=== PATIENT | male | born 1950 | race Caucasian/White ===

== ENCOUNTER → 2020-05-16 | Outpatient (CLI) | payer BC ==
--- NOTE | 2020-05-16 17:03 | XR ---
EXAMINATION TYPE: XR Hip Complete LT DATE OF EXAM: 05/16/2020 COMPARISON: NONE HISTORY: 69-year-old male with left hip pain TECHNIQUE: 2 views FINDINGS: There is moderate axial joint space narrowing at the left hip with marginal spurring. Pelvic phleboli th. No acute fracture, subluxation, or dislocation. IMPRESSION: Moderate left hip OA. No acute osseous abnormality seen.
== END | disposition home or self-care (01) ==
LOC: RADXRYALE 11:22
PROVIDERS: ATTEND Physician Assistant Medical
DX: M16.12 Unilateral primary osteoarthritis, left hip (principal)
CPT/HCPCS: 73502

== ENCOUNTER → 2020-07-25 | Outpatient (CLI) | payer MEDICARE ==
[2020-07-25 14:44] LABS: HCT 43.5 % (39.0-53.0); HGB 15.6 gm/dL (13.0-17.5); MCH 32.6 pg (25.0-35.0); MCHC 35.8 g/dL (31.0-37.0); MCV 90.8 fL (80.0-100.0); Mean Platelet Volume 7.7; Platelet Count 163 k/uL (150-450); RBC 4.79 m/uL (4.30-5.90); RDW 13.1 % (11.5-15.5); WBC 8.2 k/uL (3.8-10.6)
[2020-07-25 14:52] LABS: Appearance,Urine Clear (Clear); Bilirubin,Urine Negative (Negative); Blood,Urine Negative (Negative); Color,Urine Yellow; Glucose,Urine (UA) Negative (Negative); Ketones,Urine Negative (Negative); Leukocyte Esterase,Urine Negative (Negative); Nitrite,Urine Negative (Negative); Protein,Urine Negative (Negative); Specific Gravity,Urine 1.018 (1.001-1.035); Urobilinogen,Urine <2.0 mg/dL (<2.0)
[2020-07-25 14:54] LABS: Partial Thromboplastin Time 23.6 sec (22.0-30.0); Prothrombin Time 10.3 sec (9.0-12.0)
[2020-07-25 15:02] LABS: Albumin 4.1 g/dL (3.5-5.0); Calcium 9.3 mg/dL (8.4-10.2); Potassium 4.1 mmol/L (3.5-5.1); Total Bilirubin 0.9 mg/dL (0.2-1.3); Total Protein 6.8 g/dL (6.3-8.2)
== END | disposition home or self-care (01) ==
LOC: LABPAT 13:50
PROVIDERS: ATTEND Orthopaedic Surgery
DX: Z01.818 Encounter for other preprocedural examination (principal); M16.12 Unilateral primary osteoarthritis, left hip; Z01.812 Encounter for preprocedural laboratory examination
CPT/HCPCS: 36415; 80053; 81003; 85027; 85610; 85730; 87070; 93005

== ENCOUNTER 2020-08-02 10:27 | Day surgery (SDC) | payer BC, MEDICARE ==
[2020-07-26 15:46] VITALS: BMI 36.8
[~2020-08-02 10:27] MED LIST: ACETAMINOPHEN TAB 500 MG TAB PO PRN; GABAPENTIN 300 MG CAP PO PRN; HYDROcodone/APAP 5-325MG 1 EACH TAB PO PRN; HYDROmorphone 0.2 MG/1 ML SYRINGE IVP PRN; HYDROmorphone 0.5 MG/0.5 ML SYRINGE IVP PRN; MAGNESIUM HYDROXIDE 2,400 MG/10 ML CUP PO PRN; MELOXICAM 7.5 MG TAB PO PRN; NALOXONE 0.4 MG/ML 1 ML VIAL IV PRN; ONDANSETRON 4 MG/2 ML VIAL IVP PRN; ROPIVACAINE/EPI/CLONIDINE/KET 50 ML SYRINGE MISCELLANE PRN; TRANEXAMIC ACID 1,000 MG in SODIUM CHLORIDE 0.9% 100 ML IVPB PRN
[2020-08-02] MEDS ORDERED: MIDAZOLAM 2 MG/2 ML VIAL IV ONE (10:59)
[2020-08-02] MEDS ORDERED: PROPOFOL 10 MG/ML 20 ML VIAL IV ONE (11:10)
[2020-08-02] MEDS ORDERED: SODIUM CHLORIDE 0.9% 100 ML BAG ONE (11:10)
[2020-08-02] MEDS ORDERED: HEPARIN SODIUM,PORCINE 10,000 UNIT/ML 1 ML VIAL ONE (11:10)
[2020-08-02] MEDS ORDERED: SODIUM CHLORIDE 0.9% IRRIG 1,000 ML BTL IRRIGATION ONE (11:10)
[2020-08-02] MEDS ORDERED: LIDOCAINE 1% INJ 10MG/ML (20 ML MDV) ONE (11:10)
[2020-08-02] MEDS ORDERED: TRANEXAMIC ACID 1,000 MG/10 ML VIAL ONE (11:10)
[2020-08-02] MEDS ORDERED: ePHEDrine SULFATE/0.9% NACL/PF 50 MG/5 ML SYRINGE IV ONE (11:10)
[2020-08-02] MEDS ORDERED: MIDAZOLAM 2 MG/2 ML VIAL ONE (11:10)
[2020-08-02] MEDS ORDERED: fentaNYL (PF) 50 MCG/ML 2 ML AMP ONE (11:10)
[2020-08-02] MEDS ORDERED: IV FLUID CONTINUATION 900 ML IV ONE (11:15)
[2020-08-02] MEDS ORDERED: ceFAZolin 3,000 MG in SODIUM CHLORIDE 0.9% IRRIGATIO 3,000 ML IRRIGATION ONE (11:19)
--- NOTE | 2020-08-02 12:43 | P.OP ---
Date of Procedure: 08/02/20 Preoperative Diagnosis: Severe osteoarthritis left hip Postoperative Diagnosis: Severe osteoarthritis left hip Procedure(s) Performed: Left total hip arthroplasty with a direct anterior approach Implants: [employer]hew Polarstem standard size 6 [employer]hew R3, 3 hole hemispherical acetabular shell, 58 mm Hunt [employer] Nephew Reflection 6.5 mm cancellus screw, 20 mm, 25 mm Hunt [employer] Nephew R3, XLPE 20 acetabular liner Hunt [employer] Nephew Oxinium femoral head 36 m, +0 All components were press-fit. The articulation is Oxinium on polyethylene. Anesthesia: spinal Surgeon: Velasquez Clifton Stretch Box Tender #1: Ave Zhang Estimated Blood Loss (ml): 200 (60 mL returned with Cell Saver) Pathology: other (Femoral head) Condition: stable Disposition: PACU Indications for Procedure: After failure of conservative treatment we discussed the surgical and nonsurgical treatment options at length. Patient wishes to proceed with a total hip arthroplasty with a direct anterior approach. Complications specific to this procedure were discussed at length, including but not limited to infection, leg length discrepancy, dislocation, nerve injury, and fracture. Covid-19 was also discussed at length with the patient, and they are aware of the current policies and procedures. The patient was given the option of delaying surgery, but they elect to proceed knowing these risks. Patient is aware of all these complications and informed consent was obtained Operative Findings: Operative findings are consistent with severe osteoarthritis of left hip Description of Procedure: Patient was seen and evaluated in the preoperative area and the consent was reviewed. The operative site was marked with a skin marker. The patient was then brought to the operating room and given preoperative antibiotics intravenously. 1 g of Tranexamic acid was also given intravenously. A spinal anesthetic was administered by the anesthesia department. The patient was then placed on the Wilton table with the bony prominences well-padded. The hip area was then prepped with a ChloraPrep solution and draped in the usual sterile fashion. A universal timeout was then performed, which confirmed the patient's name, surgical site, ALLERGIES, and procedure being performed on the consent. Next the incision site was located at 1 cm distal and 1 cm lateral to the anterior superior iliac spine. The skin and subcutaneous tissues were sharply incised. Incision was carefully dissected down to the fascia overlying the tensor fascia oneil muscle. This fascia was then incised in line with the incision. Care was taken to stay laterally in order to avoid injuring the lateral femoral cutaneous nerve. Next, using blunt finger dissection, the tensor fascia oneil muscle was dissected off its investing fascia. The muscle was then carefully retracted laterally with a cobra retractor over the lateral neck of the femur. Next, the circumflex vessels were identified and cauterized using the AquaMantis device. The anterior hip capsule was then exposed. The capsule was then opened and an inverted T fashion. Cobra retractors were then placed intracapsularly. The retractors were maintained intracapsular throughout the procedure. The proximal femur was then visualized. A small amount of traction was placed on the leg. The femoral neck was then osteotomized appropriate level above the lesser trochanter. A small wedge of bone was then removed from the remaining femoral head. Next, using a corkscrew the femoral head was removed from the acetabulum. On gross visual inspection, the femoral head had complete loss of articular cartilage and multiple periarticular osteophytes. The femoral head was then measured. Attention was then turned to the acetabulum. The acetabulum was exposed and any remaining labrum was excised. Sequential reaming of the acetabulum was performed using fluoroscopic guidance until there was a good bed of bleeding cancellus bone. When the appropriate size was reached, a trial was then placed. The position and fit of the trial was checked with fluoroscopy. The trial was then removed. Then, using fluoroscopic guidance, the final implant was impacted at 20 of anteversion and 40 of abduction, and fully seated in the acetabulum. 2 screws were then placed in the acetabulum. Again fluoroscopy was used to check position of the screws. Next, the liner was then impacted, with a 20 elevated liner located in the anterior superior quadrant. Component locking was confirmed. Attention was then directed to the femur. With the aid of the Wilton table, the femur was externally rotated to approximately 130, extended, and adducted under the opposite leg. A side hook was then placed under the proximal femur, and the side hook elevator was used to elevate the proximal femur while releasing the capsule. Retractors were then placed. A capsular release was performed, as well as a release of the conjoined tendon, which afforded excellent vi sualization of the proximal femur. Next, a box osteotome was used to lateralize the proximal femur. A supervisor cigar making hand was then used to locate the femoral canal. Sequential broaching was then performed with appropriate size which afforded excellent fixation in the proximal femur. A trial was then placed with appropriate head and neck, and the hip was gently reduced with the aid of the Wilton table. Fluoroscopy was then used to check position of the components, as well as to ensure equal leg lengths. The hip was then gently dislocated and the trials were then removed. Final implants were then impacted and the hip was again reduced. Final fluoroscopic x-rays confirmed that the components were in anatomic position, as well as equal leg lengths. The hip was also taken through range of motion, and found to be stable. The hip was then copiously irrigated with antibiotic solution with pulsatile lavage. The hip was then irrigated with Irrisept solution. The soft tissues were then injected with a ropivacaine solution, which consisted of 246.25 mg of ropivacaine, 0.5 mg of epinephrine, 30 mg of Toradol, 80 g of clonidine, and 48.45 mL of sterile water, for a total of 100 mL of fluid injected. A second dose of 1 g of Tranexamic acid was also given intravenously. Any blood collected by Cell Saver was then returned to the patient at this time. The fascia was then closed with 2-0 strata fix suture. The subcutaneous tissue was closed with 3-0 Vicryl. The subcuticular tissue was closed with 3-0 strata fix suture. The skin was then closed with Exofin skin glue. After the glue and dried, and Optifoam silver impregnated dressing was applied. The patient was then transferred to the recovery room in stable condition. The delivery assistant EMILY Raman was required due to the complexity of surgery, and the need for skilled office services assistant for positioning, draping, exposure, retraction, and closure of the wound.
[2020-08-02] MEDS ORDERED: LACTATED RINGERS 1,000 ML IV ONE (12:55)
--- NOTE | 2020-08-02 13:26 | XR ---
EXAMINATION TYPE: XR Hip Limited LT DATE OF EXAM: 08/02/2020 COMPARISON: NONE HISTORY: 69-year-old male status post hip surgery, assess surgical alignment TECHNIQUE: Single AP portable view FINDINGS: Image shows placement of left hip total arthroplasty. Acetabular cup and femoral stem components of t he prosthesis are well seated without periprosthetic fracture. Alignment grossly anatomic. Scattered soft tissue air compatible with recent operation. IMPRESSION: Uncomplicated postoperative appearance left hip total arthroplasty.
[2020-08-02] MEDS: HYDROmorphone 0.5 MG/0.5 ML SYRINGE IVP ONE ×2 (15:54→15:59)
--- NOTE | 2020-08-02 15:55 | FL ---
EXAMINATION TYPE: FL guidance operating room, XR Hip Limited LT DATE OF EXAM: 08/02/2020 CLINICAL HISTORY: Left hip pain and osteoarthritis. TECHNIQUE: Fluoroscopy. Limited intraoperative views left hip. COMPARISON: Left hip x-ray May 16, 2020 FINDINGS: Fluoroscopic guidance was provided during left hip replacement procedure performed by Dr. Clifton. A total of 50 seconds of fluoroscopic time was utilized during the procedure and 2 spot in traoperative images are acquired. Images acquired show metallic hardware from total left hip arthroplasty satisfactory in position on f rontal projection. IMPRESSION: As Above.
[2020-08-02] MEDS: HYDROcodone/APAP 5-325MG 1 EACH TAB PO PRN (18:06)
[2020-08-02] MEDS: SODIUM CHLORIDE 0.9% 1,000 ML IV SCH ×2 (18:12→21:52)
[2020-08-02] MEDS ORDERED: SENNOSIDES-DOCUSATE SODIUM 1 EACH TAB PO SCH (21:00)
[2020-08-02] MEDS: ASPIRIN 325 MG TAB PO SCH (21:52)
[2020-08-03] MEDS: HYDROcodone/APAP 5-325MG 1 EACH TAB PO PRN ×2 (00:39→08:05)
[2020-08-03] MEDS ORDERED: ROPIVACAINE 246.25 MG, EPINEPHrine 0.5 MG, KETOROLAC (30 mg/mL) 30 MG, cloNIDine HCL/PF... MISCELLANE PRN ×5 (05:00)
[2020-08-03 06:31] LABS: Basophils % (A) 0 %; Eosinophils # (A) 0.1 k/uL (0-0.7); Eosinophils % (A) 1 %; HCT 36.4 % (39.0-53.0); HGB 12.8 gm/dL (13.0-17.5); Hyperchromasia Slight; Lymphocytes % (A) 12 %; MCH 31.9 pg (25.0-35.0); MCHC 35.1 g/dL (31.0-37.0); MCV 90.9 fL (80.0-100.0); Monocytes # (A) 0.7 k/uL (0-1.0); Monocytes % (A) 9 %; Neutrophils # (A) 6.3 k/uL (1.3-7.7); Neutrophils % (A) 77 %; Platelet Count 143 k/uL (150-450); RBC 4.01 m/uL (4.30-5.90); RDW 13.6 % (11.5-15.5); WBC 8.2 k/uL (3.8-10.6)
[2020-08-03] MEDS: ASPIRIN 325 MG TAB PO SCH (08:04)
[2020-08-03 08:09] VITALS: BP 118/63; PULSE 80; RESP 16; TEMP 98
[2020-08-03] MEDS ORDERED: HYDROcodone/APAP 7.5-325MG 1 EACH TAB PO PRN ×2 (08:11)
[2020-08-03] MEDS ORDERED: KETOROLAC 15 MG/ML 1 ML VIAL IVP PRN (08:14)
--- NOTE | 2020-08-03 08:19 | P.DS ---
Providers Expected date of discharge: 08/03/20 Attending physician: Velasquez Clifton Consults: 08/02/20 09:11 Consult Physician Routine Consulting Provider: Andrew Soria Consult Reason/Comments: medical management Do you want consulting provider notified?: Yes Primary care physician: Velasquez Bahena - Discharge Diagnosis(es) (1) Osteoarthritis of left hip Current Visit: Yes Status: Acute (2) S/P total hip arthroplasty Current Visit: Yes Status: Acute Hospital Course: This is a 69-year-old male with known history of degenerative arthritis of the left hip. The patient presented for evaluation as an outpatient. After discussion and consideration patient elects to proceed with total hip arthroplasty. The patient is seen preoperatively by Dr. Clifton and medically cleared for surgery by their primary care physician. Patient is admitted to [facility] on 08/02/2020 for total hip arthroplasty. The procedure is performed without complication or sequelae. The patient is doing well postoperatively. Labs and vital signs are stable on day of discharge. On day of discharge patient's hip incision is healing well. There is minimal erythema. There is no drainage noted at this time. There is minimal soft tis melissa swelling to the hip and thigh. Patient has full foot and ankle motion without difficulty or pain. Calf is soft and nontender to palpation. Neurovascular status to the left lower extremity is intact. Patient is discharged home in good condition. Opioid start talking form is reviewed and signed. Please see med rec for accurate list of home medications. Plan - Discharge Summary Discharge Rx Participant: No New Discharge Prescriptions: New HYDROcodone/APAP 7.5-325MG [[place] 7.5-325] 1 - 2 tab PO Q6H PRN #32 tab PRN Reason: Pain Ketorolac [Toradol] 10 mg PO Q6HR #12 tab Aspirin 325 mg PO BID #60 tab Sennosides [Senokot] 2 tab PO DAILY PRN #60 tablet PRN Reason: Constipation No Action Vitamin E 800 unit PO DAILY Aspirin 81 mg PO DAILY Ezetimibe [Zetia] 10 mg PO DAILY Rosuvastatin Calcium [Crestor] 40 mg PO DAILY Losartan/Hydrochlorothiazide [Losartan-Hctz 100-25 mg Tab] 1 tab PO DAILY Discharge Medication List Aspirin 81 mg PO DAILY 07/26/20 [History] Ezetimibe [Zetia] 10 mg PO DAILY 07/26/20 [History] Losartan/Hydrochlorothiazide [Losartan-Hctz 100-25 mg Tab] 1 tab PO DAILY 07/26/20 [History] Rosuvastatin Calcium [Crestor] 40 mg PO DAILY 07/26/20 [History] Vitamin E 800 unit PO DAILY 07/26/20 [History] Aspirin 325 mg PO BID #60 tab 08/03/20 [Rx] HYDROcodone/APAP 7.5-325MG [[place] 7.5-325] 1 - 2 tab PO Q6H PRN #32 tab 08/03/20 [Rx] Ketorolac [Toradol] 10 mg PO Q6HR #12 tab 08/03/20 [Rx] Sennosides [Senokot] 2 tab PO DAILY PRN #60 tablet 08/03/20 [Rx] Follow up Appointment(s)/Referral(s): Velasquez Clifton DO [Doctor of Osteopathic Medicine] - 2 Weeks Patient Instructions/Handouts: Anterior Hip Replacement (DC) Activity/Diet/Wound Care/Special Instructions: Weightbearing as tolerated with walker. Leave dressing intact. Dressing may be removed by home care nurse or by patient in 10 days. May shower with dressing on. Please take aspirin 325mg twice daily for 30 days to prevent blood clots. Recommend use of compression stockings daily until follow up to help prevent swelling and blood clots. May remove at night before sleeping. Please follow-up with [facility] in 2 weeks and call with any questions or concerns, . Discharge Disposition: HOME WITH HOME HEALTH SERVICES
[2020-08-03] MEDS ORDERED: MELOXICAM 7.5 MG TAB PO SCH (09:00)
--- NOTE | 2020-08-03 12:23 | P.CONS ---
History of Present Illness - Reason for Consult Consult date: 08/03/20 Medical management, hypertension Requesting physician: Velasquez Clifton - History of Present Illness This is a 69-year-old male who was recently admitted under Dr. Clifton orthopedic surgical services and underwent left hip arthroplasty and is being closely monitored. Patient does have a history of degenerative arthritis of the left hip and follows with Dr. Bahena in the outpatient setting and has been surgically cleared. Patient does have a history of high blood pressure, hyperlipidemia, osteoarthritis, sleep apnea, and coronary artery disease. Patient normally takes Crestor, Zettie a, a baby aspirin, and losartan/hydrochlorothiazide in the outpatient setting. Patient's blood pressu res have been on the lower side status post surgery and patient was instructed to continue to hold this medication for the next day or so and monitor blood pressure and keep a diary for primary care follow-up. Patient will continue on aspirin per orthopedic surgery and pain management. Patient will be having home care in the outpatient setting. Currently patient denies any chest pain, shortness of breath, or palpitations. Patient is afebrile. No reports of nausea or vomiting and patient is tolerating diet. Patient states he has had some gas but no bowel movements to report. Patient is urinating with no reports of dysuria or retention. Review of Systems All systems: negative Constitutional: Denies chills, Denies fever Eyes: denies blurred vision, denies pain Ears, nose, mouth and throat: Denies headache, Denies sore throat Cardiovascular: Denies chest pain, Denies shortness of breath Respiratory: Denies cough Gastrointestinal: Denies abdominal pain, Denies diarrhea, Denies nausea, Denies vomiting Musculoskeletal: Denies myalgias Musculoskeletal: left: hip pain (Tenderness noted on palpation) Integumentary: Denies pruritus, Denies rash Neurological: Denies numbness, Denies weakness Psychiatric: Denies anxiety, Denies depression Endocrine: Denies fatigue, Denies weight change Past Medical History Past Medical History: Coronary Artery Disease (CAD), Hyperlipidemia, Hypertension, Myocardial Infarction (ME), Osteoarthritis (OA), Sleep Apnea/CPAP/BIPAP Last Myocardial Infarction Date:: UNKNOWN DATE SHOWED ON EKG, CPAP MACHINE History of Any Multi-Drug Resistant Organisms: None Reported Past Surgical History: Heart Catheterization With Stent, Hernia Repair Additional Past Surgical History / Comment(s): RIGHT KNEE SURGERY - ACL ARTHROSCOPIC RIGHT KNEE X2 , UMBILICAL HERNIA,TONSILS AND UVP , HEART STENT X2 Past Anesthesia/Blood Transfusion Reactions: No Reported Reaction Date of Last Stent Placement:: 01/13/2014 Past Psychological History: No Psychological Hx Reported Smoking Status: Former smoker Past Alcohol Use History: Daily Additional Past Alcohol Use History / Comment(s): STARTED SMOKING AT AGE 13 QUIT IN 1989 SMOKED 1PPD; DRINKS ALCOHOL 5 DAYS A WEEK-NO HISTORY OF DT WITHDRAWL FROM ALCOHOL. PATIENT STATES HE HAS BEEN USING MARIJUANA EDIBLES AT NIGHT TO ALEVIATE HIP PAIN Past Drug Use History: Marijuana Additional Drug Use History / Comment(s): GUMMIES USED FOR PAIN - INSTRUCTED TO HOLD 24 HOURS PRIOR TO PROCEDURE - Past Family History Sister(s) Family Medical History: Cancer Additional Family Medical History / Comment(s): COLON CANCER Medications and Allergies Home Medications Medication Instructions Recorded Confirmed Type Aspirin 81 mg PO DAILY 07/26/20 08/02/20 History Ezetimibe [Zetia] 10 mg PO DAILY 07/26/20 08/02/20 History Losartan/Hydrochlorothiazide 1 tab PO DAILY 07/26/20 08/02/20 History [Losartan-Hctz 100-25 mg Tab] Rosuvastatin Calcium [Crestor] 40 mg PO DAILY 07/26/20 08/02/20 History Vitamin E 800 unit PO DAILY 07/26/20 08/02/20 History Aspirin 325 mg PO BID #60 tab 08/03/20 Rx HYDROcodone/APAP 7.5-325MG [[place] 1 - 2 tab PO Q6H PRN #32 tab 08/03/20 Rx 7.5-325] Ketorolac [Toradol] 10 mg PO Q6HR #12 tab 08/03/20 Rx Sennosides [Senokot] 2 tab PO DAILY PRN #60 tablet 08/03/20 Rx Allergies Allergy/AdvReac Type Severity Reaction Status Date / Time No Known Allergies Allergy Verified 08/02/20 10:40 Physical Exam Vitals: Vital Signs Temp Pulse Pulse Resp BP Pulse Ox 08/03/20 08:00 98.0 F 80 16 118/63 94 L 08/03/20 02:50 98.6 F 72 17 105/65 97 08/02/20 19:20 98.0 F 83 16 92/57 96 08/02/20 19:14 55 L 16 08/02/20 16:00 55 L 16 122/63 95 08/02/20 15:30 56 L 16 122/65 95 08/02/20 15:00 55 L 18 117/56 96 08/02/20 14:30 50 L 16 114/58 97 08/02/20 14:00 54 L 16 117/65 96 08/02/20 13:45 53 L 16 114/60 100 08/02/20 13:30 52 L 16 111/56 99 08/02/20 13:15 51 L 16 109/57 100 08/02/20 13:01 96.8 F L 65 14 118/57 97 Intake and Output 08/02/20 08/03/20 08/03/20 22:59 06:59 14:59 Intake Total 0 1190 Balance 0 1190 Intake: IV 0 Intake, IV Titration 890 Amount Sodium Chloride 0.9% 1, 840 000 ml @ 70 mls/hr IV . [id number] DARREN Rx#:[id number] ceFAZolin 2 gm In Sodium 50 Chloride 0.9% 50 ml @ 100 mls/hr IVPB Q8H DARREN Rx#: [id number] Oral 300 Other: Voiding Method Toilet Toilet # Voids 1 1 Weight 119 kg Gen: This is a 69-year-old male sitting up in the chair awake, alert and oriented 3, well-developed, well-nourished. HEENT: Head is atraumatic, normocephalic. Pupils equal, round. Sclerae is anicteric. NECK: Supple. No JVD. No lymphadenopathy. No thyromegaly. LUNGS: Clear to auscultation. No wheezes or rhonchi. No intercostal retrac tions. HEART: Regular rate and rhythm. No murmur. ABDOMEN: Soft. Obese. Bowel sounds are present. No masses. No tenderness. EXTREMITIES: No pedal edema. No calf tenderness. Left hip surgical site dressing appears dry and intact with no surrounding redness or swelling noted NEUROLOGICAL: Patient is awake, alert and oriented x3. Cranial nerves 2 through 12 are grossly intact. Results CBC & Chem 7: 08/03/20 05:54 Labs: Abnormal Lab Results - Last 24 Hours (Table) 08/03/20 Range/Units 05:54 RBC 4.01 L (4.30-5.90) m/uL Hgb 12.8 L (13.0-17.5) gm/dL Hct 36.4 L (39.0-53.0) % Plt Count 143 L (150-450) k/uL Assessment and Plan Assessment: Status post left hip arthroplasty postop day #1 Hypertension although blood pressure slightly on the lower side and will hold home medications and monitor closely for postop hypotension Hyperlipidemia, patient is on Zetia and Crestor Osteoarthritis History of sleep apnea uses a CPAP at night Coronary artery disease History of myocardial infarction DVT prophylaxis: Early ambulation Plan: Continue with current medications, management, and symptomatic treatment. Appropriate Home medications have been resumed. Continue to hold losartan/hydrochlorothiazide and monitor blood pressure readings closely. Kevin nt instructed to monitor blood pressures and keep a diary for primary care follow-up. Patient does follow with Dr. Bahena in the outpatient setting. Patient will continue with home care in the outpatient setting and arrange for outpatient rehab with physical therapy. Incentive spirometer at the bedside and instructed the patient to continue using at least 10 times every hour while awake. Will continue to follow along with orthopedic surgery during hospitalization. Further recommendations to follow. We thank you for this consult. Patient states he is being discharged home today. Time with Patient: Greater than 30
== END 2020-08-03 10:50 | disposition home health service (06) ==
LOC: OR 10:27 → 4SSUR 12:55 → OR 08-03 10:50
PROVIDERS: ATTEND Orthopaedic Surgery
DX: M16.12 Unilateral primary osteoarthritis, left hip (principal); M25.752 Osteophyte, left hip; I10 Essential (primary) hypertension; I25.2 Old myocardial infarction; M19.90 Unspecified osteoarthritis, unspecified site; I25.10 Atherosclerotic heart disease of native coronary artery without angina pectoris; G47.33 Obstructive sleep apnea (adult) (pediatric); E78.2 Mixed hyperlipidemia; G25.81 Restless legs syndrome; Z95.5 Presence of coronary angioplasty implant and graft; Z88.0 Allergy status to penicillin; Z79.82 Long term (current) use of aspirin; Z79.899 Other long term (current) drug therapy; Z98.890 Other specified postprocedural states; Z87.891 Personal history of nicotine dependence; Z80.0 Family history of malignant neoplasm of digestive organs; Z99.89 Dependence on other enabling machines and devices
CPT/HCPCS: 97110; 97161; 97535; 97165; 86891; 86900; 86901; 85025; 86850; 88300; 73501; 27130; P9022; C1776; J2250; J0171; J1644; J0690 ×3; J2405; J2001; J3010; J1885; J2795; J2704; J0735; J1170 ×2

== ENCOUNTER → 2022-12-25 | Outpatient (CLI) | payer MEDICARE ==
--- NOTE | 2022-12-25 17:10 | P.SLEEP ---
History of Present Illness H&P Date: 12/25/22 This is a 72-year-old male patient was coming in to establish himself in our office in our sleep Center regarding his obstructive sleep apnea. The patient was diagnosed having obstructive sleep apnea more than 10 years ago. His original diagnosis established through another sleep Center out of [place]. The patient since then has been utilizing a ResMed S9 CPAP series of the patient's current machine is his second machine if he has utilized during this course of sleep apnea treatment. The patient is in need for supplies for now. Is using a Mirage Activa LT large size nasal mask. I checked the patient's machine. The machine is functional. His current machine is set at a pressure of 10 cm of water. Based on the compliance data that was collected on the machine, the patient has been averaging about 8.5 hours of CPAP use per night and he has utilized the machine 100% of the time and his AHI down to 0.8 indicating successful treatment. The patient is quite content and happy with his ongoing treatment. His machine is functional. His waken up refreshed and alert during the day. He denies having any tiredness or sleepiness during the day. His [place] score is currently at 1. His weight has remained stable. He has hypertension and hyperlipidemia. No other cardiovascular complications. No other history of stroke or congestion heart failure for atrial fibrillation. No morning headaches. No shortness of breath. No chest pain. No insomnia. Denies having is noted while on treatment. No reported sleepwalking or sleep talking. No anxiety or depression. Is going to bed at around 10:30 PM and wake up 7:30 AM in the morning. Occasional naps during the day. This is not frequent. Review of Systems Constitutional: Reports as per HPI Eyes: denies as per HPI, denies blurred vision, denies bulging eye, denies decreased vision, denies diplopia, denies discharge, denies dry eye, denies irritation, denies itching, denies pain, denies photophobia, denies loss of peripheral vision, denies loss of vision, denies tunnel vision/blind spots Ears: deny: decreased hearing, ear discharge, earache, tinnitus Ears, nose, mouth and throat: Reports as per HPI Cardiovascular: Reports as per HPI Respiratory: Reports sleep apnea Gastrointestinal: Reports as per HPI Genitourinary: Reports as per HPI Musculoskeletal: Reports as per HPI Musculoskeletal: absent: ankle pain, ankle stiffness, ankle swelling Integumentary: Reports as per HPI Neurological: Reports as per HPI Psychiatric: Reports as per HPI Endocrine: Reports as per HPI Hematologic/Lymphatic: Reports as per HPI Allergic/Immunologic: Reports as per HPI Past Medical History Past Medical History: Coronary Artery Disease (CAD), Hyperlipidemia, Hypertension, Sleep Apnea/CPAP/BIPAP Additional Past Surgical History / Comment(s): RIGHT KNEE SURGERY - ACL ARTHROSCOPIC RIGHT KNEE X2 , UMBILICAL HERNIA,TONSILS AND UVP , HEART STENT X2 Additional Past Alcohol Use History / Comment(s): STARTED SMOKING AT AGE 13 QUIT IN 1989 SMOKED 1PPD; DRINKS ALCOHOL 5 DAYS A WEEK-NO HISTORY OF DT WITHDRAWL FROM ALCOHOL. PATIENT STATES HE HAS BEEN USING MARIJUANA EDIBLES AT NIGHT TO ALEVIATE HIP PAIN Medications and Allergies Home Medications Medication Instructions Recorded Confirmed Type Ezetimibe [Zetia] 10 mg PO DAILY 07/26/20 08/02/20 History Losartan/Hydrochlorothiazide 1 tab PO DAILY 07/26/20 08/02/20 History [Losartan-Hctz 100-25 mg Tab] Rosuvastatin Calcium [Crestor] 40 mg PO DAILY 07/26/20 08/02/20 History Vitamin E 800 unit PO DAILY 07/26/20 08/02/20 History Aspirin 325 mg PO BID #60 tab 08/03/20 Rx HYDROcodone/APAP 7.5-325MG [[place] 1 - 2 tab PO Q6H PRN #32 tab 08/03/20 Rx 7.5-325] Ketorolac [Toradol] 10 mg PO Q6HR #12 tab 08/03/20 Rx Sennosides [Senokot] 2 tab PO DAILY PRN #60 tablet 08/03/20 Rx Allergies Allergy/AdvReac Type Severity Reaction Status Date / Time No Known Allergies Allergy Verified 08/02/20 10:40 Physical Exam BP is 137/72, pulse is 62, respiration is 16 and temperature is 96.9 with a pulse ox of 96% on room air oxygen. Weight is 268 pounds in a body mass index is 37.7. The site of the neck is 20.5 inches. Gen. appearance the patient is morbidly obese and the patient is calm and comfortable not in acute respiratory distress The patient appeared well nourished and normally developed. Vital signs as documented. Head exam is unremarkable. No scleral icterus or corneal arcus noted. Neck is without jugular venous distension, thyromegaly, or carotid bruits. The patient is a Mallampati class IV with significant crowding of the posterior oropharynx. Carotid upstrokes are brisk bilaterally. Lungs are clear to auscultation and percussion. Cardiac exam reveals the PMI to be normally sized and situated. Rhythm is regular. First and second heart sounds normal. No murmurs, rubs or gallops. Abdominal exam reveals normal bowel sounds, no masses, no organomegaly and no aortic enlargement. Extremities are nonedematous and both femoral and pedal pulses are normal. MelanExamination of the skin revealed no evidence of significant rashes, suspicious appearing nevi or other concerning lesions.Neurologically, the patient is awake and alert and the patient does not have any focal neurological deficit. Cranial nerves are essentially intact. Assessment and Plan Plan: Obstructive sleep apnea and the patient is a long-time CPAP user. Original study was done and also has consented out of [facility]. The patient is currently using a ResMed S9 series machine at a pressure of 10 cm of water and the patient's treatment has been extremely successful. Chronic hypersomnia, improved while on CPAP therapy the patient has no residual symptoms Obesity with a BMI of 37.7 Previous history of smoking Coronary artery disease which is currently inactive and stable Hypertension Hyperlipidemia Plan I checked the patient's CPAP machine and the machine is functional We'll keep on using the same machine for now and there is no need for update We'll order the patient and Mirage Activa LT nasal mask in addition to tubing and a climate line and the supplies/filters Encourage weight loss Maintain CPAP therapy The prescription was sent to [facility] We'll try to obtain copies of his original polysomnography We'll see me back and operas in a year's time in follow-up. Sleep Note - Sleep Note Sleep Note: Temperature: Pulse Rate: Respiratory Rate: Blood Pressure: SpO2: Height: Weight: BMI: Neck Circumference:
== END ==
LOC: 3 N SLEEP 14:17
PROVIDERS: ATTEND Internal Medicine Critical Care Medicine
DX: G47.33 Obstructive sleep apnea (adult) (pediatric) (principal); I10 Essential (primary) hypertension; E78.5 Hyperlipidemia, unspecified; I25.10 Atherosclerotic heart disease of native coronary artery without angina pectoris; E66.9 Obesity, unspecified; Z68.37 Body mass index [BMI] 37.0-37.9, adult; Z99.89 Dependence on other enabling machines and devices; Z87.891 Personal history of nicotine dependence
CPT/HCPCS: 99211

== ENCOUNTER → 2023-04-02 | Outpatient (CLI) | payer MEDICARE ==
--- NOTE | 2023-04-02 21:17 | XR ---
EXAMINATION TYPE: XR tibia fibula 2 views LT DATE OF EXAM: 04/02/2023 Comparison: None Clinical History: 72-year-old male [id number] SWELLING PAIN LL LEG Findings: There is soft tissue thickening overlying the irregular tibial tuberosity. Popliteal artery calcifica tions. [id number] sized plantar heel spur. Small delineation to the Achilles tendon. Ankle mor tise appears congruent and intact. No acute fracture seen. Impression: 1. Some bony spurring at the tibial tuberosity with corresponding thickening of the insertional barfield lar tendon. Correlate for chronic insertional patellar tendinopathy. 2. [id number]-fc-[id number] plantar calcaneal spur. 3. No acute osseous abnormality seen.
== END | disposition home or self-care (01) ==
LOC: RADXRYALE 10:27
PROVIDERS: ATTEND Family Medicine
DX: M77.32 Calcaneal spur, left foot (principal)

== ENCOUNTER 2023-12-20 11:58 | Day surgery (SDC) | payer MEDICARE ==
[2023-12-20] MEDS: LACTATED RINGERS 1,000 ML IV SCH (12:20)
[2023-12-20] MEDS ORDERED: PROPOFOL 10 MG/ML 20 ML VIAL IV ONE (13:01)
[2023-12-20 13:20] VITALS: TEMP 98.4
--- NOTE | 2023-12-20 13:45 | P.PCN ---
Date of Procedure: 12/20/23 Procedure(s) Performed: BRIEF HISTORY: Patient is a 73-year-old pleasant white male scheduled for an elective colonoscopy as a part of screening for colon cancer and family history of colon cancer. His sister was diagnosed with colon cancer at age 60. PROCEDURE PERFORMED: Colonoscopy with biopsy. PREOPERATIVE DIAGNOSIS: Screening for colon cancer and family history of colon cancer. IV sedation per Anesthesia. PROCEDURE: After informed consent was obtained, the patient, was brought into the endoscopy unit. IV sedation was administered by Anesthesia under continuous monitoring. Digital rectal examination was normal. Initially the Olympus CF-160 flexible video colonoscope was then inserted in the rectum, gradually advanced into the cecum without any difficulty. Careful examination was performed as the scope was gradually being withdrawn. Ileocecal valve and the appendiceal orifice were visualized and appeared normal. Prep was excellent. Mucosa of the cecum, ascending colon normal. In the transverse colon there was a 5 to 6 mm flat polyp that was removed by cold biopsy. Rest of the, transverse colon, descending colon, sigmoid colon, and rectum appeared normal. Sigmoid diverticulosis noted. Retroflexion was performed in the rectum and no lesions were seen. The patient tolerated the procedure well. IMPRESSION: 3 mm transverse colon polyp status post removal by cold biopsy Sigmoid diverticulosis. RECOMMENDATIONS: Findings of this examination were discussed with the patient as well as his family. He was advised to follow-up with the biopsy results. Recommend repeat colonoscopy in 5 years because of the family history of colon cancer
[2023-12-20 14:13] VITALS: BP 124/70; PULSE 60; RESP 18
== END 2023-12-20 13:54 | disposition home or self-care (01) ==
LOC: ORWHC2ENDO 11:58
PROVIDERS: ATTEND Internal Medicine Gastroenterology
DX: Z12.11 Encounter for screening for malignant neoplasm of colon (principal); D12.3 Benign neoplasm of transverse colon; K57.30 Diverticulosis of large intestine without perforation or abscess without bleeding; I10 Essential (primary) hypertension; I25.10 Atherosclerotic heart disease of native coronary artery without angina pectoris; E78.5 Hyperlipidemia, unspecified; G47.33 Obstructive sleep apnea (adult) (pediatric); E66.9 Obesity, unspecified; Z80.0 Family history of malignant neoplasm of digestive organs; Z79.82 Long term (current) use of aspirin; Z79.899 Other long term (current) drug therapy; Z88.0 Allergy status to penicillin; Z68.36 Body mass index [BMI] 36.0-36.9, adult
CPT/HCPCS: 88305; 45380; J2704

== ENCOUNTER 2024-10-13 09:07 | Day surgery (SDC) | payer MEDICARE ==
[2024-10-13] MEDS: IV FLUID CONTINUATION 1,000 ML IV ONE (09:49)
[2024-10-13] MEDS: LACTATED RINGERS 1,000 ML IV SCH (09:49)
[2024-10-13 09:51] VITALS: TEMP 97.3
[2024-10-13] MEDS ORDERED: PROPOFOL 10 MG/ML 20 ML VIAL IV ONE (10:32)
[2024-10-13 11:01] VITALS: RESP 16
[2024-10-13 11:03] VITALS: BP 121/72; PULSE 58
--- NOTE | 2024-10-13 11:10 | P.PCN ---
Date of Procedure: 10/13/24 Procedure(s) Performed: BRIEF HISTORY: Patient is a 73-year-old, pleasant, white male scheduled for an upper endoscopy as a part evaluation of chronic cough and intermittent dysphagia to solids. PROCEDURE PERFORMED: Esophagogastroduodenoscopy with biopsy. PREOPERATIVE DIAGNOSIS: Chronic cough and intermittent dysphagia to solids. IV sedation per anesthesia. PROCEDURE: After informed consent was obtained, the patient was brought into the endoscopy unit. IV sedation was administered by Anesthesia under continuous monitoring. Initially the Olympus GIF-140 video endoscope was inserted into the mouth. Esophagus intubated without any difficulty. It was gradually advanced into the stomach and duodenum and carefully examined. The bulb and the second part of the duodenum appeared normal. The scope at this time was withdrawn to the stomach, adequately insufflated with air, and upon careful examination, mucosa of the antrum and body of the mucosa consistent with gastritis and biopsies were done from this area. Mucosa of the, body, cardia and the fundus appeared normal. The scope was then withdrawn into the esophagus. The GE junction was located at 45 cm from the incisors. The esophagus appeared normal. There were no erosions or ulcerations seen. No evidence of esophageal stricture. Biopsies were done from the distal esophagus. The proximal cervical esophagus appeared entirely normal and there was no evidence of Zenker's diverticulum noted. And the patient tolerated the procedure well. IMPRESSION: 1. Mild antral gastritis. 2. Multiple small gastric polyps 3. Normal-appearing esophagus with notes of esophagitis or esophageal stricture RECOMMENDATIONS: The findings of this examination were discussed with the patient as well as his family. He was advised to follow-up with the biopsy results..
== END 2024-10-13 11:13 | disposition home or self-care (01) ==
LOC: ORWHC2ENDO 09:07
PROVIDERS: ATTEND Internal Medicine Gastroenterology
DX: K29.50 Unspecified chronic gastritis without bleeding (principal); K31.7 Polyp of stomach and duodenum; K22.2 Esophageal obstruction; I10 Essential (primary) hypertension; E78.5 Hyperlipidemia, unspecified; I25.10 Atherosclerotic heart disease of native coronary artery without angina pectoris; G47.33 Obstructive sleep apnea (adult) (pediatric); F10.90 Alcohol use, unspecified, uncomplicated; Z95.5 Presence of coronary angioplasty implant and graft; Z99.89 Dependence on other enabling machines and devices; Z79.82 Long term (current) use of aspirin; Z79.899 Other long term (current) drug therapy; Z88.0 Allergy status to penicillin
CPT/HCPCS: 88305; 43239; J2704

== ENCOUNTER → 2024-10-27 | Outpatient (CLI) | payer MEDICARE ==
--- NOTE | 2024-10-27 13:37 | FL ---
EXAMINATION TYPE: FL barium swallow w video DATE OF EXAM: 10/27/2024 CLINICAL HISTORY: 73-year-old male R13.10, unspecified dysphasia, coughing with solids and liquids. TECHNIQUE: Deglutition study is performed utilizing thin liquid barium, barium thick pudding, and ba rium coated cracker. Total dose area product (DAP) in uGy*m?, mGy*cm? (or similar): 50 mGycm2. Total fluoroscopy time: 1 minute 9 seconds. Total images: 1. COMPARISON: None. FINDINGS: The oral and pharyngeal phases show satisfactory initiation and propagation with all modalities teste d. Normal mastication is seen with solid modalities tested. There is no evidence of penetration or aspiration with any modality tested. No significant pharyngeal residue was appreciated. IMPRESSION: Normal deglutition study. Please refer to speech therapist notes for further details if necessary. [facility] [place], , 10/27/2024 1:34 PM
== END | disposition home or self-care (01) ==
LOC: RADFLMAIN 12:28
PROVIDERS: ATTEND Otolaryngology
DX: R13.10 Dysphagia, unspecified (principal); R05.9 Cough, unspecified
CPT/HCPCS: 74230